=== PATIENT | male | born 1965 | race Caucasian/White ===

== ENCOUNTER 2017-05-11 10:56 | Emergency (ER) | payer SELFPAY ==
[~2017-05-11 10:56] MED LIST: AZITHROMYCIN 250 MG TAB PO SCH; predniSONE 20 MG TAB PO SCH
[2017-05-11] MEDS ORDERED: IPRATROPIUM/ALBUTEROL 3 ML DEYVIAL IH ONE (13:23)
--- NOTE | 2017-05-11 13:23 | EDPHY ---
H & P Time Seen by Provider: 05/11/17 12:46 HPI/ROS: Chief complaint. Cough, short of breath HPI. Patient is a 51-year-old male here with complaint of cough, shortness of breath is for 1 week. His cough is productive of clear sputum. He complains of dizziness. He has had some vomiting and diarrhea. No fever. He does have a history of asthma. He thinks he has been exposed to Giardia. He does not have an inhaler. He does continue to smoke. No chest discomfort. No abdominal pain with vomiting and diarrhea. No unusual leg pain or swelling ROS Constitutional. no fever/chills, no weakness Eyes. no problems with vision ENT. no sore throat, no nasal drainage Cardiovascular. no chest pain Respiratory. Shortness of breath and productive cough Abdominal. No abdominal pain but vomiting and diarrhea . no problems urinating MS. no calf pain/swelling, no neck/back pain, no joint pain Skin. no rash Lymph. no swollen glands Neuro. no headache, dizziness, no difficulty walking or with speech Past Medical/Surgical History: Past medical history is significant for asthma, open-heart surgery Social History: Single, daily smoker, no alcohol Smoking Status: Current every day smoker Physical Exam: General Appearance: Alert well-developed male mild distress vital signs are stable Eyes: Pupils equal and round no pallor or injection. ENT, Mouth: Mucous membranes are moist. Respiratory: There are no retractions. Mild inspiratory expiratory rhonchi and some end-expiratory wheezing Cardiovascular: Regular rate and rhythm. Gastrointestinal: Abdomen is soft and nontender, no masses, bowel sounds normal. Neurological: Awake and alert, sensory and motor exams grossly normal. Skin: Warm and dry, no rashes. Musculoskeletal: Neck is supple nontender. Extremities symmetrical, full range of motion. Psychiatric: Patient is oriented X 3, there is no agitation. Constitutional: Initial Vital Signs Temperature (C) 36.6 C 05/11/17 11:18 Heart Rate 78 05/11/17 11:18 Respiratory Rate 18 05/11/17 11:18 Blood Pressure 132/76 H 05/11/17 11:18 O2 Sat (%) 96 05/11/17 11:18 O2 Delivery Mode Room Air Allergies/Adverse Reactions: No Known Allergies Allergy (Unverified 05/11/17 11:23) Home Medications: Medication Instructions Recorded Albuterol Sulfate [PROVENTIL HFA] 2 puffs IH Q4-6PRN PRN #1 05/11/17 [email or web address] Azithromycin [Zithromax] 250 mg PO DAILY #6 tab 05/11/17 predniSONE 40 mg PO DAILY #10 tab 05/11/17 Medical Decision Making - Diagnostics Imaging Results: Imaging Impressions Chest X-Ray 05/11/17 13:15 Impression: 1. Cardiomegaly without failure. 2. No pneumonia. 3. Prominent ascending aorta. Aortic valve disease or aneurysm? Results called to Dr. Rucker. Chest x-ray reviewed by me shows previous sternotomy. Consistent with airway disease and bronchitis. No pneumonia present Procedures: DuoNeb updraft ED Course/Re-evaluation: Re-evaluation 3:10 p.m.. Patient and I discussed chest x-ray results, treatment plan, criteria for return, importance of follow-up further evaluation. He expresses understanding and agreement I listened to the patient's lungs again--mild expiratory rhonchi but no rales or wheezes. Patient is conversational and speaking in full sentences. There is no stridor. Patient is unable to give us a stool sample. Differential Diagnosis: This is likely bronchitis and asthma exacerbation. I considered pneumonia. It is possible the patient has Giardia however cannot give us a stool sample for further evaluation. - Data Points Medications Given: Discontinued Medications Albuterol/Ipratropium (Duoneb) 3 ml IH EDNOW ONE Stop: 05/11/17 13:24 Last Admin: 05/11/17 13:27 Dose: 3 ml Departure - Departure Disposition: Home, Routine, Self-Care Clinical Impression: Acute bronchitis Qualifiers: Bronchitis organism: unspecified organism Qualified Code(s): J20.9 - Acute bronchitis, unspecified Condition: Good Instructions: Acute Bronchitis (ED) Additional Instructions: Albuterol inhaler using 2 puffs every 4 hours to help with cough and breathing. Prednisone to help with breathing. Zithromax is antibiotic. Return for worsening symptoms. I am giving you the name [facility] for follow-[facility] and further evaluation. Referrals: NONE *PRIMARY CARE P,. [Primary Care Provider] - As per Instructions [facility] [Outside] - 2-3 days, call for appt. Prescriptions: Albuterol Sulfate [PROVENTIL HFA] 2 puffs IH Q4-6PRN PRN #1 [email or web address] PRN Reason: Short Of Breath/Dyspnea Azithromycin [Zithromax] 250 mg PO DAILY #6 tab predniSONE 40 mg PO DAILY #10 tab
[2017-05-11 16:12] VITALS: BP 125/76; PULSE 67; RESP 16; TEMP 98.4; O2SAT 97
[2017-05-11] MEDS ORDERED: ALBUTEROL INH PREPACK MDI TAKEHOME ONE (16:16)
== END 2017-05-11 15:28 | disposition home or self-care (01) ==
DX: J20.9 Acute bronchitis, unspecified (principal); J45.909 Unspecified asthma, uncomplicated; F17.200 Nicotine dependence, unspecified, uncomplicated
CPT/HCPCS: J7512